=== PATIENT | female | born 1965 | race Caucasian/White ===

== ENCOUNTER 2017-03-29 14:26 | Inpatient (IN) | payer OTHER, MEDICAID ==
[~2017-03-29] VITALS: Ht 165.1 cm; Wt 95.9 kg
[~2017-03-29 14:26] MED LIST: CLON1TAB PO; ESTRADIOL PO; FLUO20CA19 PO; QUET25TA5 PO; QUET50TA5 PO; REMERON PO; RISPERIDONE; SEROQUEL PO; TRAM100T2 PO; XANAX; ZOLPIDEM PO
[2017-03-29] MEDS ORDERED: CLON-365 PO (14:47)
[2017-03-29] MEDS ORDERED: ESTR1.25 PO (14:47)
[2017-03-29] MEDS ORDERED: QUET300T5 PO (14:47)
[2017-03-29] MEDS ORDERED: KETOROLAC 30 MG/1 ML IV ONE (15:00)
[2017-03-29 15:52] LABS: BLOOD UREA NITROGEN 11 mg/dL (7-18)
[2017-03-29] MEDS ORDERED: HYDROmorphone 1 MG/ML, 1ML ONE ×2 (16:20→19:01)
[2017-03-29] MEDS ORDERED: HYDROmorphone 1 MG/ML, 1ML IV ONE (16:30)
[2017-03-29] MEDS ORDERED: MIDAZOLAM 1 MG/ML, 2ML ONE (17:45)
[2017-03-29] MEDS ORDERED: FENTANYL PF 250 MCG/5ML ONE (17:45)
[2017-03-29] MEDS ORDERED: KETAMINE 10 MG/ML, 20ML ONE (18:17)
[2017-03-29] MEDS ORDERED: NEOSPORIN OINT, 15GM ONE (18:18)
[2017-03-29] MEDS ORDERED: CEFAZOLIN 1,000 MG ONE (18:21)
[2017-03-29] MEDS ORDERED: SUCCINYLCHOLINE 20 MG/ML, 10ML ONE (18:21)
[2017-03-29] MEDS ORDERED: PHENYLEPHRINE 10 MG/ML ONE (18:21)
[2017-03-29] MEDS ORDERED: GLYCOPYRROLATE 0.2MG/1ML ONE (18:21)
[2017-03-29] MEDS ORDERED: NEOSTIGMINE 1 MG/ML, 10ML ONE (18:21)
[2017-03-29] MEDS ORDERED: ONDANSETRON 2MG/ML, 2ML ONE (18:21)
[2017-03-29] MEDS ORDERED: EPHEDRINE 50 MG/ML, 1ML ONE (18:21)
[2017-03-29] MEDS ORDERED: ROCURONIUM 10 MG/ML ONE (18:21)
[2017-03-29] MEDS ORDERED: PROPOFOL 10 MG/ML, 20ML ONE (18:21)
[2017-03-29] MEDS ORDERED: PROMETHAZINE 25 MG/ML, 1ML IV PRN (19:30)
[2017-03-29] MEDS ORDERED: LABETALOL 5MG/ML, 20ML IV PRN (19:30)
[2017-03-29] MEDS ORDERED: HYDROmorphone 1 MG/ML, 1ML IV PRN (19:30)
[2017-03-29] MEDS ORDERED: POTASSIUM CHLORIDE PMX 100 ML IV ONE (19:30)
[2017-03-29] MEDS ORDERED: METOPROLOL 1 MG/ML, 5ML IV PRN (19:30)
[2017-03-29] MEDS ORDERED: MEPERIDINE/PF 25MG/0.5ML IVPush PRN (19:30)
[2017-03-29] MEDS ORDERED: METOCLOPRAMIDE 5 MG/ML, 2ML IV PRN (19:30)
[2017-03-29] MEDS ORDERED: EPHEDRINE 50 MG/ML, 1ML IVPush PRN (19:30)
[2017-03-29] MEDS ORDERED: OXYcodone 5 MG/5 ML ORAL.SOL UDC PO PRN (19:30)
[2017-03-29] MEDS ORDERED: MIDAZOLAM 1 MG/ML, 2ML IV PRN (19:30)
[2017-03-29] MEDS ORDERED: ACETAMINOPHEN 325 MG TABLET PO PRN ×2 (19:30→20:30)
[2017-03-29] MEDS ORDERED: hydrALAzine 20 MG/ML, 1ML IV PRN (19:30)
[2017-03-29] MEDS ORDERED: FENTANYL PF 100 MCG/2ML IV PRN (19:30)
[2017-03-29] MEDS ORDERED: ONDANSETRON 2MG/ML, 2ML IVPush PRN ×2 (19:30→20:30)
[2017-03-29] MEDS ORDERED: OXYcodone 5 MG/5 ML ORAL.SOL UDC ONE (20:07)
[2017-03-29] MEDS ORDERED: FENTANYL PF 100 MCG/2ML ONE (20:07)
[2017-03-29] MEDS ORDERED: HYDROmorphone 2 MG/ML, 1ML ONE (20:07)
[2017-03-29] MEDS ORDERED: MAGNESIUM HYDROXIDE 8%, 30ML UDC PO PRN (20:30)
[2017-03-29] MEDS ORDERED: BISACODYL 10 MG SUPP PR PRN (20:30)
[2017-03-29] MEDS: POTASSIUM CHLORIDE 20 MEQ in D5%-0.45% NACL 1,000 ML IV SCH (22:57)
[2017-03-29] MEDS: DOCUSATE 100 MG CAPSULE PO SCH (22:57)
[2017-03-29 23:49] VITALS: BP 111/67
[2017-03-30] MEDS: OXYcodone/APAP 5/325MG TABLET PO PRN ×5 (02:51→18:07)
[2017-03-30] MEDS: CEFAZOLIN PMX 1GM/50ML 50 ML IVPB SCH ×2 (02:51→11:17)
[2017-03-30 03:28] VITALS: BP 102/68
[2017-03-30 07:12] VITALS: BP 110/70
[2017-03-30] MEDS: ENOXAPARIN 40 MG/0.4 ML SQ SCH (07:37)
[2017-03-30] MEDS: POTASSIUM CHLORIDE 20 MEQ in D5%-0.45% NACL 1,000 ML IV SCH ×2 (07:37→16:09)
[2017-03-30] MEDS: DOCUSATE 100 MG CAPSULE PO SCH ×2 (09:22→20:34)
[2017-03-30] MEDS: MULTIVITAMINS/MINERALS TABLET PO SCH (09:22)
[2017-03-30] MEDS: HYDROmorphone 1 MG/ML, 1ML IVPush PRN ×3 (11:35→20:34)
[2017-03-30 14:08] VITALS: BP 96/50
[2017-03-30 19:22] VITALS: BP 97/58
[2017-03-31] MEDS: OXYcodone/APAP 5/325MG TABLET PO PRN ×5 (00:14→22:46)
[2017-03-31 02:51] VITALS: BP 95/52
[2017-03-31] MEDS: HYDROmorphone 1 MG/ML, 1ML IVPush PRN ×3 (03:14→11:42)
[2017-03-31] MEDS: POTASSIUM CHLORIDE 20 MEQ in D5%-0.45% NACL 1,000 ML IV SCH ×2 (06:13→17:38)
[2017-03-31] MEDS: ENOXAPARIN 40 MG/0.4 ML SQ SCH (06:13)
[2017-03-31 07:57] VITALS: BP 113/77
[2017-03-31] MEDS: MULTIVITAMINS/MINERALS TABLET PO SCH (08:16)
[2017-03-31] MEDS: DOCUSATE 100 MG CAPSULE PO SCH ×2 (08:16→19:56)
[2017-03-31 14:45] VITALS: BP 98/65
[2017-03-31] MEDS ORDERED: ASPI-650 PO (16:24)
[2017-03-31] MEDS ORDERED: DOCU-30 PO (16:24)
[2017-03-31] MEDS ORDERED: OXYC-302 PO (16:27)
[2017-03-31 20:59] VITALS: BP 97/61
[2017-04-01] MEDS: HYDROmorphone 1 MG/ML, 1ML IVPush PRN ×4 (00:21→15:33)
[2017-04-01] MEDS: POTASSIUM CHLORIDE 20 MEQ in D5%-0.45% NACL 1,000 ML IV SCH ×3 (01:43→18:23)
[2017-04-01] MEDS: OXYcodone/APAP 5/325MG TABLET PO PRN ×5 (03:28→22:51)
[2017-04-01 03:30] VITALS: BP 135/81
[2017-04-01] MEDS: ENOXAPARIN 40 MG/0.4 ML SQ SCH (06:27)
[2017-04-01 08:31] VITALS: BP 124/81
[2017-04-01] MEDS: MULTIVITAMINS/MINERALS TABLET PO SCH (09:10)
[2017-04-01] MEDS: DOCUSATE 100 MG CAPSULE PO SCH ×2 (09:10→21:21)
[2017-04-01 14:07] VITALS: BP 130/81
[2017-04-01] MEDS: SENNA/DOCUSATE TABLET PO PRN (15:33)
[2017-04-01 19:55] VITALS: BP 127/81
[2017-04-02] MEDS: POTASSIUM CHLORIDE 20 MEQ in D5%-0.45% NACL 1,000 ML IV SCH ×2 (01:58→13:06)
[2017-04-02 02:45] VITALS: BP 124/85
[2017-04-02] MEDS: OXYcodone/APAP 5/325MG TABLET PO PRN ×5 (03:05→21:40)
[2017-04-02] MEDS: ENOXAPARIN 40 MG/0.4 ML SQ SCH (05:33)
[2017-04-02] MEDS: HYDROmorphone 1 MG/ML, 1ML IVPush PRN ×3 (05:59→20:24)
[2017-04-02 07:08] VITALS: BP 124/84
[2017-04-02] MEDS ORDERED: ONDANSETRON 4 MG TABLET PO PRN (08:00)
[2017-04-02] MEDS: MULTIVITAMINS/MINERALS TABLET PO SCH (08:57)
[2017-04-02] MEDS: ORAJEL 7GM TUBE MM PRN (08:58)
[2017-04-02] MEDS: DOCUSATE 100 MG CAPSULE PO SCH ×2 (08:58→21:40)
[2017-04-02 12:16] VITALS: BP 124/80
[2017-04-02 20:30] VITALS: BP 117/78
[2017-04-03] MEDS: OXYcodone/APAP 5/325MG TABLET PO PRN ×3 (01:24→10:14)
[2017-04-03] MEDS: POTASSIUM CHLORIDE 20 MEQ in D5%-0.45% NACL 1,000 ML IV SCH ×3 (01:24→19:18)
[2017-04-03 02:00] VITALS: BP 126/70
[2017-04-03] MEDS: HYDROmorphone 1 MG/ML, 1ML IVPush PRN (04:35)
[2017-04-03 04:58] VITALS: BP 126/73
[2017-04-03] MEDS: SENNA/DOCUSATE TABLET PO PRN (05:27)
[2017-04-03] MEDS: ENOXAPARIN 40 MG/0.4 ML SQ SCH (05:28)
[2017-04-03] MEDS ORDERED: POLYETHYLENE GLYCOL 17 GM PACKET NG ONE (09:00)
[2017-04-03 09:18] VITALS: BP 120/80
[2017-04-03] MEDS: MULTIVITAMINS/MINERALS TABLET PO SCH (10:13)
[2017-04-03] MEDS: DOCUSATE 100 MG CAPSULE PO SCH ×2 (10:13→20:45)
[2017-04-03 14:16] VITALS: BP 134/80
[2017-04-03] MEDS: OXYcodone/APAP 10/325MG TABLET PO PRN ×2 (15:00→20:45)
[2017-04-03] MEDS: ORAJEL 7GM TUBE MM PRN (16:36)
[2017-04-03 19:35] VITALS: BP 131/84
[2017-04-04] MEDS: OXYcodone/APAP 10/325MG TABLET PO PRN ×4 (00:45→14:13)
[2017-04-04 03:00] VITALS: BP 130/86
[2017-04-04] MEDS: POTASSIUM CHLORIDE 20 MEQ in D5%-0.45% NACL 1,000 ML IV SCH ×2 (04:22→14:13)
[2017-04-04] MEDS: ENOXAPARIN 40 MG/0.4 ML SQ SCH (05:24)
[2017-04-04 08:01] VITALS: BP 136/85
[2017-04-04] MEDS: MULTIVITAMINS/MINERALS TABLET PO SCH (09:37)
[2017-04-04] MEDS: DOCUSATE 100 MG CAPSULE PO SCH (09:37)
[2017-04-04 14:02] VITALS: BP 123/68
== END 2017-04-04 17:15 | DRG 481 ==
LOC: ED 15:48 → EDIP 15:49 → ED 15:58 → 4NOR 17:07
PROVIDERS: ADMIT Orthopaedic Surgery; ATTEND Orthopaedic Surgery
PROC: 0QS604Z Reposition Right Upper Femur with Internal Fixation Device, Open Approach (ICD-10-PCS; principal; 2017-03-29 18:30)
DX: S72.001A Fracture of unspecified part of neck of right femur, initial encounter for closed fracture (principal); D62 Acute posthemorrhagic anemia; M25.051 Hemarthrosis, right hip; F17.210 Nicotine dependence, cigarettes, uncomplicated; F41.9 Anxiety disorder, unspecified; W19.XXXA Unspecified fall, initial encounter; Y93.89 Activity, other specified; Y92.89 Other specified places as the place of occurrence of the external cause; Z98.1 Arthrodesis status
CPT/HCPCS: 36415; 76001; 80048; 80307; 82040; 82550; 85014; 85025; C1713; J0690; J1170; J1650; J2250; J2405; J2704; J2710; J3010; J3480; J3490; Q0162; C1769; J0330; J2370

== ENCOUNTER 2017-05-01 15:43 | Emergency (ER) | payer OTHER, MEDICAID ==
[~2017-05-01 15:43] MED LIST changes: +ASPI-650 PO; +CLON-365 PO; +DOCU-30 PO; +ESTR1.25 PO; +OXYC-302 PO; +QUET300T5 PO
[2017-05-01 17:48] VITALS: BP 136/76
== END 2017-05-01 17:56 | disposition home or self-care (01) ==
LOC: ED 17:14
DX: S70.01XA Contusion of right hip, initial encounter (principal); I10 Essential (primary) hypertension; E78.5 Hyperlipidemia, unspecified; F17.200 Nicotine dependence, unspecified, uncomplicated; Z90.710 Acquired absence of both cervix and uterus; W07.XXXA Fall from chair, initial encounter; Y93.89 Activity, other specified; Y92.89 Other specified places as the place of occurrence of the external cause; Y99.8 Other external cause status
CPT/HCPCS: 99284

== ENCOUNTER 2017-06-07 12:16 | Emergency (ER) | payer OTHER, MEDICAID ==
[~2017-06-07] VITALS: Ht 165.1 cm; Wt 100.0 kg
[2017-06-07] MEDS ORDERED: SODIUM CHLORIDE FLUSH 10ML SYR IVF ONE (12:30)
[2017-06-07] MEDS ORDERED: MORPHINE SULFATE 4 MG/ML, 1ML ONE ×2 (12:32→13:25)
[2017-06-07] MEDS: MORPHINE SULFATE 4 MG/ML, 1ML IVPush PRN ×2 (12:34→13:27)
[2017-06-07 14:56] VITALS: BP 119/69
== END 2017-06-07 14:58 | disposition home or self-care (01) ==
LOC: ED 14:45
DX: S70.01XA Contusion of right hip, initial encounter (principal); I10 Essential (primary) hypertension; Z90.710 Acquired absence of both cervix and uterus; Z98.890 Other specified postprocedural states; W01.0XXA Fall on same level from slipping, tripping and stumbling without subsequent striking against object, initial encounter; Y93.89 Activity, other specified; Y92.098 Other place in other non-institutional residence as the place of occurrence of the external cause; Y99.8 Other external cause status
CPT/HCPCS: 96374; 96376

== ENCOUNTER 2017-06-29 09:46 | Day surgery (SDC) | payer OTHER, MEDICAID ==
[~2017-06-29] VITALS: Ht 165.1 cm; Wt 87.1 kg
[2017-06-29] MEDS ORDERED: LACTATED RINGERS 1,000 ML IV SCH (10:41)
[2017-06-29 10:48] VITALS: BP 161/95
[2017-06-29] MEDS ORDERED: ESTR1TAB17 PO (10:58)
[2017-06-29] MEDS ORDERED: BUPIVACAINE/PF 0.5% ONE (11:51)
[2017-06-29] MEDS ORDERED: methylPREDNISolone *ACETATE* 40 MG/ML ONE (11:51)
[2017-06-29] MEDS ORDERED: LIDOCAINE/PF 1%, 30ML ONE (12:14)
[2017-06-29] MEDS ORDERED: ALBUTEROL SULFATE 2.5 MG/3 ML NPPB PRN (13:00)
[2017-06-29] MEDS ORDERED: HYDROcodone/APAP 7.5-325MG/15ML UDC PO PRN (13:00)
[2017-06-29] MEDS ORDERED: ONDANSETRON 2MG/ML, 2ML IVPush PRN (13:00)
[2017-06-29] MEDS ORDERED: HYDROcodone/APAP 5/325 TABLET PO ONE (14:30)
[2017-06-29] MEDS ORDERED: KETOROLAC 30 MG/1 ML ONE (15:58)
== END 2017-06-29 15:15 ==
LOC: OUT 09:46
PROVIDERS: ATTEND Orthopaedic Surgery
DX: S72.001K Fracture of unspecified part of neck of right femur, subsequent encounter for closed fracture with nonunion (principal); X58.XXXD Exposure to other specified factors, subsequent encounter; F17.200 Nicotine dependence, unspecified, uncomplicated
CPT/HCPCS: 20610; 73501; 73700; 76000; J1030; J1885; J3490; J7120

== ENCOUNTER → 2017-07-01 | Outpatient (CLI) | payer OTHER, MEDICAID ==
[~2017-07-01] MED LIST changes: +ESTR1TAB17 PO
[2017-07-01 13:01] LABS: HEMATOCRIT 38.2 % (34.6-47.8); HEMOGLOBIN 12.2 g/dL (11.7-16.4); WHITE BLOOD COUNT 8.2 x10^3/uL (3.4-10)
[2017-07-01 13:14] LABS: BLOOD UREA NITROGEN 15 mg/dL (7-18)
[2017-07-01 13:23] LABS: ASPARTATE AMINO TRANSFERASE 10 U/L (15-37)
== END | disposition home or self-care (01) ==
LOC: STAR 11:51
PROVIDERS: ATTEND Orthopaedic Surgery
DX: S72.031D Displaced midcervical fracture of right femur, subsequent encounter for closed fracture with routine healing (principal); X58.XXXD Exposure to other specified factors, subsequent encounter
CPT/HCPCS: 36415; 80053; 81003; 85025; 85651; 86140; 87081; 87147; 93005

== ENCOUNTER 2017-07-07 08:05 | Inpatient (IN) | payer OTHER, MEDICAID ==
[~2017-07-07] VITALS: Ht 165.1 cm; Wt 91.7 kg
[~2017-07-07 08:05] MED LIST changes: +DOCU-131 PO; -DOCU-30 PO
[2017-07-07] MEDS ORDERED: VANCOMYCIN PER PHARMACY MC ONE (08:24)
[2017-07-07] MEDS ORDERED: VANCOMYCIN 1,700 MG in SODIUM CHLORIDE 0.9% 250 ML IV ONE (08:30)
[2017-07-07] MEDS ORDERED: LACTATED RINGERS 1,000 ML IV SCH (09:03)
[2017-07-07 09:04] VITALS: BP 166/110
[2017-07-07] MEDS ORDERED: MIDAZOLAM 1 MG/ML, 2ML ONE (10:20)
[2017-07-07] MEDS ORDERED: FENTANYL PF 100 MCG/2ML ONE (10:20)
[2017-07-07] MEDS ORDERED: ROCURONIUM 10 MG/ML ONE (10:36)
[2017-07-07] MEDS ORDERED: DEXAMETHASONE 4 MG/ML, 1ML ONE (10:36)
[2017-07-07] MEDS ORDERED: ONDANSETRON 2MG/ML, 2ML ONE ×2 (10:36→13:06)
[2017-07-07] MEDS ORDERED: CEFAZOLIN 1,000 MG ONE (10:36)
[2017-07-07] MEDS ORDERED: PROPOFOL 10 MG/ML, 20ML ONE (10:36)
[2017-07-07] MEDS ORDERED: TRANEXAMIC ACID 100 MG/ML, 10ML ONE (11:10)
[2017-07-07] MEDS ORDERED: KETOROLAC 60 MG/2 ML ONE (11:13)
[2017-07-07] MEDS ORDERED: ROPIvacaine/PF 0.2%, 20 ML ONE (11:13)
[2017-07-07] MEDS ORDERED: SODIUM CHLORIDE 0.9% 50 ML ONE (11:14)
[2017-07-07] MEDS ORDERED: EPINEPHRINE 1 MG/ML, 1ML ONE (11:14)
[2017-07-07] MEDS ORDERED: EPHEDRINE 50 MG/ML, 1ML IVPush PRN (12:30)
[2017-07-07] MEDS ORDERED: HYDROcodone/APAP 7.5-325MG/15ML UDC PO PRN (12:30)
[2017-07-07] MEDS ORDERED: LABETALOL 5MG/ML, 20ML IV PRN (12:30)
[2017-07-07] MEDS ORDERED: ALBUTEROL SULFATE 2.5 MG/3 ML NPPB PRN (12:30)
[2017-07-07] MEDS ORDERED: OXYcodone 5 MG/5 ML ORAL.SOL UDC PO PRN (12:30)
[2017-07-07] MEDS ORDERED: MEPERIDINE/PF 25MG/0.5ML IVPush PRN (12:30)
[2017-07-07] MEDS ORDERED: ACETAMINOPHEN 325 MG TABLET PO PRN (12:30)
[2017-07-07] MEDS ORDERED: MIDAZOLAM 1 MG/ML, 2ML IV PRN (12:30)
[2017-07-07] MEDS ORDERED: FENTANYL PF 100 MCG/2ML IV PRN (12:30)
[2017-07-07] MEDS ORDERED: ALBUTEROL/IPRATROPIUM 2.5MG/0.5MG, 3 ML NPPB PRN (12:30)
[2017-07-07] MEDS ORDERED: METOPROLOL 1 MG/ML, 5ML IV PRN (12:30)
[2017-07-07] MEDS ORDERED: ONDANSETRON 2MG/ML, 2ML IVPush PRN (12:30)
[2017-07-07] MEDS ORDERED: PROMETHAZINE 25 MG/ML, 1ML IV PRN (12:30)
[2017-07-07] MEDS ORDERED: HYDROmorphone 1 MG/ML, 1ML IV PRN (12:30)
[2017-07-07] MEDS ORDERED: hydrALAzine 20 MG/ML, 1ML IV PRN (12:30)
[2017-07-07] MEDS: D5%-0.45NACL+KCL 20MEQ 1,000 ML IV SCH ×2 (13:03→19:25)
[2017-07-07] MEDS: ONDANSETRON 2MG/ML, 2ML IV PRN (13:09)
[2017-07-07] MEDS ORDERED: BISACODYL 10 MG SUPP PR PRN (13:30)
[2017-07-07] MEDS ORDERED: ALUMINUM/MAG/SIMETHICONE 30 ML UDC PO PRN (13:30)
[2017-07-07] MEDS ORDERED: MAGNESIUM HYDROXIDE 8%, 30ML UDC PO PRN (13:30)
[2017-07-07] MEDS ORDERED: ACETAMINOPHEN 650 MG/20.3 ML UDC PO PRN (13:30)
[2017-07-07] MEDS ORDERED: SENNA/DOCUSATE TABLET PO PRN (13:30)
[2017-07-07] MEDS ORDERED: PROMETHAZINE 25 MG/ML, 1ML ONE (13:40)
[2017-07-07] MEDS ORDERED: HYDROmorphone 1 MG/ML, 1ML ONE (13:40)
[2017-07-07] MEDS: OXYcodone IR 5MG TABLET PO PRN ×3 (15:30→22:12)
[2017-07-07] MEDS: HYDROmorphone 1 MG/ML, 1ML IV PRN ×3 (17:03→23:42)
[2017-07-07] MEDS: CEFAZOLIN PMX 1GM/50ML 50 ML IVPB SCH (18:41)
[2017-07-07] MEDS: DOCUSATE 100 MG CAPSULE PO SCH (19:55)
[2017-07-07 20:00] VITALS: BP 131/79
[2017-07-08] VITALS: BP 107/71
[2017-07-08] MEDS: OXYcodone IR 5MG TABLET PO PRN ×5 (02:02→20:21)
[2017-07-08] MEDS: CEFAZOLIN PMX 1GM/50ML 50 ML IVPB SCH (03:04)
[2017-07-08] MEDS: HYDROmorphone 1 MG/ML, 1ML IV PRN ×2 (03:24→05:36)
[2017-07-08 04:00] VITALS: BP 130/81
[2017-07-08] MEDS: ASPIRIN 325 MG TABLET EC PO SCH ×2 (05:36→17:26)
[2017-07-08 07:41] VITALS: BP 140/77
[2017-07-08] MEDS: MULTIVITAMINS/MINERALS TABLET PO SCH (07:52)
[2017-07-08] MEDS: DOCUSATE 100 MG CAPSULE PO SCH ×2 (07:52→20:20)
[2017-07-08] MEDS: OxyconTIN ER 10 MG TAB.ER PO SCH ×2 (08:58→20:15)
[2017-07-08] MEDS: D5%-0.45NACL+KCL 20MEQ 1,000 ML IV SCH ×2 (09:03→18:19)
[2017-07-08 14:10] VITALS: BP 137/84
[2017-07-08] MEDS: KETOROLAC 30 MG/1 ML IV SCH ×2 (14:12→21:44)
[2017-07-08] MEDS ORDERED: OXYC10TA47 PO (16:34)
[2017-07-08] MEDS ORDERED: OXYC10TA6 PO (16:35)
[2017-07-08] MEDS ORDERED: DOCU100C33 PO (16:37)
[2017-07-08] MEDS ORDERED: ASPI-650 PO (16:38)
[2017-07-08 18:54] VITALS: BP 113/68
[2017-07-08] MEDS: ONDANSETRON 2MG/ML, 2ML IV PRN (21:44)
[2017-07-09] MEDS: OXYcodone IR 5MG TABLET PO PRN ×3 (00:19→11:20)
[2017-07-09 01:32] VITALS: BP 117/70
[2017-07-09] MEDS: ASPIRIN 325 MG TABLET EC PO SCH (05:31)
[2017-07-09] MEDS: KETOROLAC 30 MG/1 ML IV SCH (05:31)
[2017-07-09] MEDS: D5%-0.45NACL+KCL 20MEQ 1,000 ML IV SCH (05:32)
[2017-07-09 06:30] VITALS: BP 116/51
[2017-07-09] MEDS: DOCUSATE 100 MG CAPSULE PO SCH (08:05)
[2017-07-09] MEDS: MULTIVITAMINS/MINERALS TABLET PO SCH (08:05)
[2017-07-09] MEDS: OxyconTIN ER 10 MG TAB.ER PO SCH (08:05)
[2017-07-09] MEDS: ONDANSETRON 2MG/ML, 2ML IV PRN (09:59)
[2017-07-09 11:51] VITALS: BP 125/57
== END 2017-07-09 12:15 | disposition home or self-care (01) | DRG 470 ==
LOC: ORIP 08:05 → MERGE 10:30 → 4NOR 14:37
PROVIDERS: ADMIT Orthopaedic Surgery; ATTEND Orthopaedic Surgery
PROC: 0SP904Z Removal of Internal Fixation Device from Right Hip Joint, Open Approach (ICD-10-PCS; 2017-07-07)
PROC: 0SR90J9 Replacement of Right Hip Joint with Synthetic Substitute, Cemented, Open Approach (ICD-10-PCS; principal; 2017-07-07 10:30)
DX: S72.001A Fracture of unspecified part of neck of right femur, initial encounter for closed fracture (principal); E66.9 Obesity, unspecified; Z72.0 Tobacco use; Z68.33 Body mass index [BMI] 33.0-33.9, adult
CPT/HCPCS: 36415; 72170; 86850; 86900; C1713; J0171; J0690; J1100; J1170; J1885; J2250; J2405; J2550; J2704; J2795; J3010; J3370; C1776; J3480; J7050; J7120

== ENCOUNTER 2017-08-21 13:41 | Emergency (ER) | payer OTHER, MEDICAID ==
[~2017-08-21] VITALS: Ht 165.1 cm; Wt 88.1 kg
[~2017-08-21 13:41] MED LIST changes: +DOCU100C33 PO; +OXYC10TA47 PO; +OXYC10TA6 PO
[2017-08-21 13:48] VITALS: BP 161/112
[2017-08-21] MEDS ORDERED: OXYC5CAP2 PO (14:18)
[2017-08-21] MEDS ORDERED: HYDROcodone/APAP 5/325 TABLET PO ONE (15:00)
[2017-08-21] MEDS ORDERED: HYDROcodone/APAP 5/325 TABLET ONE (15:06)
== END 2017-08-21 15:54 ==
LOC: ED 15:30
DX: S70.01XA Contusion of right hip, initial encounter (principal); S30.0XXA Contusion of lower back and pelvis, initial encounter; I10 Essential (primary) hypertension; E78.5 Hyperlipidemia, unspecified; Z90.710 Acquired absence of both cervix and uterus; W19.XXXA Unspecified fall, initial encounter; Y93.89 Activity, other specified; Y92.009 Unspecified place in unspecified non-institutional (private) residence as the place of occurrence of the external cause; Y99.9 Unspecified external cause status
CPT/HCPCS: 72131; 72192; 99284

== ENCOUNTER 2017-09-20 13:45 | Inpatient (IN) | payer OTHER, MEDICAID ==
[~2017-09-20] VITALS: Ht 165.1 cm; Wt 82.5 kg
[~2017-09-20 13:45] MED LIST changes: +OXYC5CAP2 PO
[2017-09-20] MEDS ORDERED: SODIUM CHLORIDE 0.9% 1,000 ML IV ONE (14:09)
[2017-09-20] MEDS ORDERED: SODIUM CHLORIDE 0.9% 1,000ML IVBOLUS ONE (14:30)
[2017-09-20 14:33] LABS: HEMATOCRIT 28.2 % (34.6-47.8); HEMOGLOBIN 9.3 g/dL (11.7-16.4); WHITE BLOOD COUNT 11.5 x10^3/uL (3.4-10)
[2017-09-20 14:46] LABS: BLOOD UREA NITROGEN 24 mg/dL (7-18)
[2017-09-20 14:57] LABS: ASPARTATE AMINO TRANSFERASE 10 U/L (15-37)
[2017-09-20] MEDS ORDERED: ONDANSETRON 2MG/ML, 2ML ONE (15:54)
[2017-09-20] MEDS ORDERED: HYDROmorphone 1 MG/ML, 1ML ONE ×2 (15:54→18:17)
[2017-09-20] MEDS: HYDROmorphone 1 MG/ML, 1ML IVPush PRN ×2 (15:56→18:22)
[2017-09-20] MEDS ORDERED: ONDANSETRON 2MG/ML, 2ML IVPush ONE (16:00)
[2017-09-20] MEDS ORDERED: CLON0.1T PO (16:09)
[2017-09-20] MEDS ORDERED: PANTOPRAZOLE 40 MG IV ONE (17:24)
[2017-09-20] MEDS ORDERED: PANTOPRAZOLE 40 MG IV IVPush ONE (17:30)
[2017-09-20] MEDS ORDERED: PANTOPRAZOLE 80 MG in SODIUM CHLORIDE 0.9% 100 ML IV SCH (18:00)
[2017-09-20] MEDS ORDERED: SODIUM CHLORIDE FLUSH 10ML SYR IVF PRN (18:00)
[2017-09-20] MEDS ORDERED: ONDANSETRON 2MG/ML, 2ML IVPush PRN (18:30)
[2017-09-20] MEDS: PANTOPRAZOLE 80 MG in SODIUM CHLORIDE 0.9% 100 ML IV SCH (18:30)
[2017-09-20 18:50] VITALS: BP 120/77
[2017-09-20] MEDS: OXYCODONE MC SCH (20:00)
[2017-09-20 20:03] LABS: HEMOGLOBIN 7.7 g/dL (11.7-16.4)
[2017-09-20] MEDS: NS + 20MEQ KCL 1,000 ML IV SCH (20:55)
[2017-09-20] MEDS: LORazepam 2 MG/ML, 1ML IVPush PRN (21:05)
[2017-09-20] MEDS: QUETIAPINE 100MG TABLET PO SCH (21:34)
[2017-09-21] VITALS (11 sets, daily range): BP systolic 96–133; BP diastolic 43–77
[2017-09-21 02:22] LABS: HEMOGLOBIN 7.2 g/dL (11.7-16.4); WHITE BLOOD COUNT 8.3 x10^3/uL (3.4-10)
[2017-09-21 02:25] LABS: HEMATOCRIT 22.3 % (34.6-47.8)
[2017-09-21 02:34] LABS: BLOOD UREA NITROGEN 21 mg/dL (7-18)
[2017-09-21 02:37] LABS: ASPARTATE AMINO TRANSFERASE 9 U/L (15-37)
[2017-09-21] MEDS: LORazepam 2 MG/ML, 1ML IVPush PRN ×3 (03:30→20:25)
[2017-09-21] MEDS: OXYCODONE MC SCH (04:00)
[2017-09-21] MEDS ORDERED: HYDROcodone/APAP 7.5-325MG/15ML UDC PO PRN (07:30)
[2017-09-21] MEDS ORDERED: OXYcodone 5 MG/5 ML ORAL.SOL UDC PO PRN (07:30)
[2017-09-21] MEDS ORDERED: EPHEDRINE 50 MG/ML, 1ML IVPush PRN (07:30)
[2017-09-21] MEDS ORDERED: METOCLOPRAMIDE 5 MG/ML, 2ML IV PRN (07:30)
[2017-09-21] MEDS ORDERED: PROMETHAZINE 25 MG/ML, 1ML IV PRN (07:30)
[2017-09-21] MEDS ORDERED: LABETALOL 5MG/ML, 20ML IV PRN (07:30)
[2017-09-21] MEDS ORDERED: ACETAMINOPHEN 325 MG TABLET PO PRN (07:30)
[2017-09-21] MEDS ORDERED: METOPROLOL 1 MG/ML, 5ML IV PRN (07:30)
[2017-09-21] MEDS ORDERED: hydrALAzine 20 MG/ML, 1ML IV PRN (07:30)
[2017-09-21] MEDS ORDERED: ALBUTEROL SULFATE 2.5 MG/3 ML NPPB PRN (07:30)
[2017-09-21] MEDS ORDERED: MEPERIDINE/PF 25MG/0.5ML IVPush PRN (07:30)
[2017-09-21] MEDS ORDERED: ONDANSETRON 2MG/ML, 2ML IVPush PRN (07:30)
[2017-09-21] MEDS ORDERED: HYDROmorphone 1 MG/ML, 1ML IV PRN (07:30)
[2017-09-21] MEDS ORDERED: FENTANYL PF 100 MCG/2ML ONE ×2 (07:31→08:49)
[2017-09-21] MEDS ORDERED: MIDAZOLAM 1 MG/ML, 2ML ONE (08:48)
[2017-09-21] MEDS: MIDAZOLAM 1 MG/ML, 2ML IV PRN ×2 (08:56→09:11)
[2017-09-21] MEDS ORDERED: EPINEPHRINE SYRINGE 0.1 MG/ML, 10ML ONE (08:57)
[2017-09-21] MEDS: FENTANYL PF 100 MCG/2ML IV PRN ×2 (08:59→09:09)
[2017-09-21] MEDS: NS + 20MEQ KCL 1,000 ML IV SCH ×2 (09:00→20:26)
[2017-09-21] MEDS ORDERED: OXYcodone IR 5MG TABLET PO SCH (09:00)
[2017-09-21] MEDS ORDERED: HYDROmorphone 1 MG/ML, 1ML ONE (09:13)
[2017-09-21] MEDS: OXYcodone IR 5MG TABLET PO PRN ×2 (10:42→17:29)
[2017-09-21] MEDS: PANTOPRAZOLE 80 MG in SODIUM CHLORIDE 0.9% 100 ML IV SCH (10:43)
[2017-09-21] MEDS: ESTRADIOL 1 MG TABLET PO SCH (10:43)
[2017-09-21] MEDS: PANTOPRAZOLE 40 MG IV IVPush SCH ×2 (11:00→23:50)
[2017-09-21 11:33] LABS: HEMOGLOBIN 7.8 g/dL (11.7-16.4)
[2017-09-21 14:29] LABS: HEMATOCRIT 23.3 % (34.6-47.8); HEMOGLOBIN 7.6 g/dL (11.7-16.4)
[2017-09-21] MEDS ORDERED: ONDANSETRON 2MG/ML, 2ML ONE (15:56)
[2017-09-21] MEDS ORDERED: ROCURONIUM 10 MG/ML ONE (15:56)
[2017-09-21] MEDS ORDERED: PROPOFOL 10 MG/ML, 20ML ONE (15:56)
[2017-09-21] MEDS ORDERED: SUCCINYLCHOLINE 20 MG/ML, 10ML ONE (15:56)
[2017-09-21] MEDS: QUETIAPINE 100MG TABLET PO SCH (20:25)
[2017-09-22] MEDS: LORazepam 2 MG/ML, 1ML IVPush PRN ×2 (02:50→10:41)
[2017-09-22] MEDS: OXYcodone IR 5MG TABLET PO PRN ×2 (02:50→10:06)
[2017-09-22 03:00] VITALS: BP 123/73
[2017-09-22 05:32] LABS: BLOOD UREA NITROGEN 12 mg/dL (7-18)
[2017-09-22] MEDS: NS + 20MEQ KCL 1,000 ML IV SCH (05:50)
[2017-09-22 07:39] VITALS: BP 100/64
[2017-09-22 09:13] LABS: HEMOGLOBIN 7.9 g/dL (11.7-16.4); WHITE BLOOD COUNT 8.9 x10^3/uL (3.4-10)
[2017-09-22] MEDS: PANTOPRAZOLE 40 MG IV IVPush SCH (10:06)
[2017-09-22] MEDS: ESTRADIOL 1 MG TABLET PO SCH (10:06)
[2017-09-22] MEDS ORDERED: ASCO500T6 PO (10:26)
[2017-09-22] MEDS ORDERED: PANT40TA5 PO (10:26)
[2017-09-22] MEDS ORDERED: FERR-36 PO (10:26)
[2017-09-22] MEDS ORDERED: PANTOPROZOLE 40MG TABLET PO SCH (10:30)
[2017-09-22] MEDS ORDERED: ASCORBIC ACID 500 MG TABLET PO SCH (10:30)
[2017-09-23] MEDS ORDERED: FERROUS SULFATE 325 MG TABLET PO SCH (08:00)
== END 2017-09-22 13:56 | disposition home or self-care (01) | DRG 378 ==
LOC: ED 15:54 → EDIP 17:37 → 3NE 19:00
PROVIDERS: ADMIT Family Medicine; ATTEND Family Medicine
PROC: 0W3P8ZZ Control Bleeding in Gastrointestinal Tract, Via Natural or Artificial Opening Endoscopic (ICD-10-PCS; 2017-09-21)
PROC: 0DB78ZX Excision of Stomach, Pylorus, Via Natural or Artificial Opening Endoscopic, Diagnostic (ICD-10-PCS; 2017-09-21)
PROC: 30233N1 Transfusion of Nonautologous Red Blood Cells into Peripheral Vein, Percutaneous Approach (ICD-10-PCS; principal; 2017-09-21 07:30)
DX: K26.4 Chronic or unspecified duodenal ulcer with hemorrhage (principal); D62 Acute posthemorrhagic anemia; I31.3 Pericardial effusion (noninflammatory); E44.1 Mild protein-calorie malnutrition; K29.81 Duodenitis with bleeding; Z68.33 Body mass index [BMI] 33.0-33.9, adult; D72.829 Elevated white blood cell count, unspecified; E78.5 Hyperlipidemia, unspecified; E87.6 Hypokalemia; Z96.649 Presence of unspecified artificial hip joint; F17.210 Nicotine dependence, cigarettes, uncomplicated; F31.9 Bipolar disorder, unspecified; F43.10 Post-traumatic stress disorder, unspecified; G89.29 Other chronic pain; I10 Essential (primary) hypertension; Z82.49 Family history of ischemic heart disease and other diseases of the circulatory system
CPT/HCPCS: 36415; 36430; 74177; 80048; 80053; 81003; 83605; 83690; 83735; 84100; 85014; 85018; 85025; 85610; 85730; 86850; 86900; 86923; 88305; 96361; 96365; 96375; 96376; J1170; J2250; J2405; J2704; J3010; J3480; C9113; J0330; J2060; J7030; P9016

== ENCOUNTER 2017-10-02 21:45 | Emergency (ER) | payer OTHER, MEDICAID ==
[~2017-10-02] VITALS: Ht 165.1 cm; Wt 82.0 kg
[~2017-10-02 21:45] MED LIST changes: +ASCO500T6 PO; +CLON0.1T PO; +FERR-36 PO; +PANT40TA5 PO
[2017-10-02] MEDS ORDERED: KETOROLAC 30 MG/1 ML ONE (22:18)
[2017-10-02] MEDS ORDERED: HYDROcodone/APAP 5/325 TABLET ONE (22:18)
[2017-10-02] MEDS ORDERED: KETOROLAC 30 MG/1 ML IM ONE (22:30)
[2017-10-02] MEDS ORDERED: HYDROcodone/APAP 5/325 TABLET PO ONE (22:30)
[2017-10-02 23:21] LABS: HEMATOCRIT 32.3 % (34.6-47.8); HEMOGLOBIN 10.7 g/dL (11.7-16.4); WHITE BLOOD COUNT 7.9 x10^3/uL (3.4-10)
[2017-10-02 23:43] LABS: BLOOD UREA NITROGEN 14 mg/dL (7-18)
[2017-10-02 23:48] LABS: IS PT STATUS REG ER OR PRE ER? YES
[2017-10-03] MEDS ORDERED: POTASSIUM CHLORIDE 20 MEQ TAB.ER.PRT ONE (00:16)
[2017-10-03] MEDS ORDERED: POTASSIUM CHLORIDE 20 MEQ TAB.ER.PRT PO ONE (00:30)
[2017-10-03 01:02] VITALS: BP 132/78
== END 2017-10-03 01:04 | disposition home or self-care (01) ==
LOC: ED 21:58
DX: S40.011A Contusion of right shoulder, initial encounter (principal); S70.11XA Contusion of right thigh, initial encounter; S80.01XA Contusion of right knee, initial encounter; I10 Essential (primary) hypertension; E78.5 Hyperlipidemia, unspecified; W01.0XXA Fall on same level from slipping, tripping and stumbling without subsequent striking against object, initial encounter; Y93.89 Activity, other specified; Y92.009 Unspecified place in unspecified non-institutional (private) residence as the place of occurrence of the external cause; Y99.9 Unspecified external cause status
CPT/HCPCS: 36415; 73030; 73552; 73564; 80048; 82040; 84484; 85025; 93005; 96372; 99285; J1885

== ENCOUNTER 2018-01-31 16:36 | Emergency (ER) | payer MEDICARE, MEDICAID ==
[~2018-01-31] VITALS: Ht 165.1 cm; Wt 74.4 kg
[~2018-01-31 16:36] MED LIST changes: -FERR-36 PO; +FERR-51 PO
[2018-01-31] MEDS ORDERED: HYDROcodone/APAP 5/325 TABLET PO ONE (18:30)
[2018-01-31] MEDS ORDERED: HYDROcodone/APAP 5/325 TABLET ONE (18:54)
[2018-01-31 19:34] VITALS: BP 129/74
== END 2018-01-31 19:36 | disposition home or self-care (01) ==
LOC: ED 19:30
DX: S76.012A Strain of muscle, fascia and tendon of left hip, initial encounter (principal); W01.0XXA Fall on same level from slipping, tripping and stumbling without subsequent striking against object, initial encounter; Y93.89 Activity, other specified; Y92.009 Unspecified place in unspecified non-institutional (private) residence as the place of occurrence of the external cause; Y99.8 Other external cause status; Z90.710 Acquired absence of both cervix and uterus; E78.5 Hyperlipidemia, unspecified; F31.9 Bipolar disorder, unspecified; F43.10 Post-traumatic stress disorder, unspecified; I10 Essential (primary) hypertension; Z90.49 Acquired absence of other specified parts of digestive tract
CPT/HCPCS: 93005; 99284

== ENCOUNTER 2018-03-08 20:14 | Inpatient (IN) | payer MEDICARE, MEDICAID ==
[~2018-03-08] VITALS: Ht 165.1 cm; Wt 80.1 kg
[~2018-03-08 20:14] MED LIST changes: -TRAM100T2 PO; +TRAM100T33 PO
[2018-03-08 20:47] LABS: BASOPHILS # (AUTO) 0.04 x10^3/uL (0-0.1); BASOPHILS % (AUTO) 0 % (0-1); EOSINOPHILS # (AUTO) 0.07 x10^3/uL (0-0.4); EOSINOPHILS % (AUTO) 1 % (1-7); LYMPHOCYTES # (AUTO) 4.73 x10^3/uL (1-3.4); LYMPHOCYTES % (AUTO) 44 % (22-44); MD NO; MEAN CORPUSCULAR HEMOGLOBIN 30.3 pg (27.0-34.8); MEAN CORPUSCULAR HGB CONC 33.4 g/dL (32.4-35.8); MEAN CORPUSCULAR VOLUME 90.5 fL (80-100); MEAN PLATELET VOLUME 7.7 fL (7.4-10.4); MONOCYTES # (AUTO) 0.55 x10^3/uL (0.2-0.8); MONOCYTES % (AUTO) 5 % (2-9); NEUTROPHILS # (AUTO) 5.47 x10^3/uL (1.8-6.8); NEUTROPHILS % (AUTO) 50 % (42-75); PLATELET COUNT 367 x10^3/uL (130-400); RED BLOOD COUNT 4.06 x10^6/uL (3.82-5.3); RED CELL DISTRIBUTION WIDTH 15.6 % (9.6-15.2)
[2018-03-08 20:59] LABS: ALANINE AMINOTRANSFERASE 20 U/L (12-78); ALBUMIN 3.3 g/dL (3.4-5.0); ANION GAP 9 mmol/L (5-15); CALCIUM 8.9 mg/dL (8.5-10.1); CHLORIDE 105 mmol/L (98-107); CREATININE 0.97 mg/dL (0.55-1.02)
[2018-03-08] MEDS ORDERED: SODIUM CHLORIDE 0.9% 1,000ML IVBOLUS ONE (21:00)
[2018-03-08] MEDS ORDERED: FAMOTIDINE 20 MG/2 ML IVP ONE (21:00)
[2018-03-08] MEDS ORDERED: SODIUM CHLORIDE FLUSH 10ML SYR IVF ONE (21:00)
[2018-03-08] MEDS ORDERED: MAALOX/HYOSCYAMINE/LIDOCAINE 45 ML BTL PO ONE (21:00)
[2018-03-08 21:04] LABS: ALKALINE PHOSPHATASE 115 U/L (45-117); BILIRUBIN,TOTAL 0.1 mg/dL (0.2-1.0); TOTAL PROTEIN 7.6 g/dL (6.4-8.2); TROPONIN I < 0.015 ng/mL (0.000-0.045)
[2018-03-08] MEDS ORDERED: MAALOX/HYOSCYAMINE/LIDOCAINE 45 ML BTL ONE (21:14)
[2018-03-08] MEDS ORDERED: FAMOTIDINE 20 MG/2 ML ONE (21:14)
[2018-03-08] MEDS ORDERED: CEFTRIAXONE PMX 1GM/50ML 50 ML ONE (21:46)
[2018-03-08] MEDS ORDERED: LORazepam 2 MG/ML, 1ML ONE (21:47)
[2018-03-08] MEDS ORDERED: AZITHROMYCIN 500 MG in SODIUM CHLORIDE 0.9% 250 ML IVPB ONE (22:00)
[2018-03-08] MEDS ORDERED: CEFTRIAXONE PMX 1GM/50ML 50 ML IVPB ONE (22:00)
[2018-03-08] MEDS ORDERED: LORazepam 2 MG/ML, 1ML IVPush ONE (22:00)
[2018-03-08 23:40] LABS: CULTURE INDICATED? YES; MICROSCOPIC INDICATED
[2018-03-08 23:42] VITALS: BP 120/75
[2018-03-08] MEDS ORDERED: CLON-365 PO (23:50)
[2018-03-09] MEDS ORDERED: CEFTRIAXONE PMX 1GM/50ML 50 ML IV ONE (02:00)
[2018-03-09] MEDS ORDERED: SODIUM CHLORIDE 0.9% 1,000 ML IV SCH (02:04)
[2018-03-09] MEDS ORDERED: BISACODYL 10 MG SUPP PR PRN (02:30)
[2018-03-09] MEDS ORDERED: hydrALAzine 20 MG/ML, 1ML IVPush PRN (02:30)
[2018-03-09] MEDS ORDERED: DOCUSATE 100 MG CAPSULE PO PRN (02:30)
[2018-03-09] MEDS ORDERED: POLYETHYLENE GLYCOL 17 GM PACKET PO PRN (02:30)
[2018-03-09] MEDS ORDERED: ONDANSETRON 2MG/ML, 2ML IVPush PRN (02:30)
[2018-03-09] MEDS ORDERED: ACETAMINOPHEN 325 MG TABLET PO PRN (02:30)
[2018-03-09] MEDS ORDERED: ENALAPRILAT 1.25 MG/ML, 2ML IVPush PRN (02:30)
[2018-03-09] MEDS ORDERED: LABETALOL 5MG/ML, 20ML IVPush PRN (02:30)
[2018-03-09] MEDS: GUAIFENESIN ER 600 MG TABLET PO SCH ×2 (02:40→12:56)
[2018-03-09] MEDS: ENOXAPARIN 40 MG/0.4 ML SQ SCH (02:40)
[2018-03-09] MEDS: NICOTINE 7 MG/24 HR PATCH.TD24 TD SCH (02:40)
[2018-03-09] MEDS: morphine SULFATE 10 MG/ML, 1ML IVPush PRN ×8 (02:41→23:01)
[2018-03-09 02:47] VITALS: BP 110/70
[2018-03-09 03:30] LABS: FREE T4 (FREE THYROXINE) 0.5 ng/dL (0.76-1.46); THYROID STIMULATING HORMONE 3.38 mIU/L (0.358-3.740)
[2018-03-09 04:38] LABS: HEMOGLOBIN A1C 6.1 % (4.2-6.3)
[2018-03-09 07:50] VITALS: BP 114/75
[2018-03-09] MEDS ORDERED: ONDANSETRON 4 MG TABLET ONE (09:35)
[2018-03-09] MEDS: DOXYCYCLINE 100MG TABLET PO SCH ×2 (09:45→19:55)
[2018-03-09] MEDS ORDERED: ONDANSETRON ODT 4 MG PO PRN (10:00)
[2018-03-09] MEDS: ESTRADIOL 1 MG TABLET PO SCH (10:03)
[2018-03-09] MEDS ORDERED: KETOROLAC 30 MG/1 ML IVPush PRN (13:00)
[2018-03-09] MEDS ORDERED: LIDODERM 5% PATCH TD SCH (13:00)
[2018-03-09 14:30] VITALS: BP 141/87
[2018-03-09] MEDS ORDERED: OMNIPAQUE 350 MG/ML, 100ML BOTTLE ONE (16:58)
[2018-03-09] MEDS ORDERED: MORPHINE SULFATE 4 MG/ML, 1ML ONE (16:59)
[2018-03-09 18:32] VITALS: BP 115/72
[2018-03-09] MEDS ORDERED: QUETIAPINE 200 MG TABLET PO SCH (21:00)
[2018-03-09] MEDS ORDERED: CEFTRIAXONE PMX 2GM/50ML 50 ML IV SCH (23:00)
[2018-03-09] MEDS ORDERED: CEFTRIAXONE 2 GM in DEXTROSE 5% 50 ML IV SCH (23:00)
[2018-03-10] MEDS: ENOXAPARIN 40 MG/0.4 ML SQ SCH (01:16)
[2018-03-10] MEDS: GUAIFENESIN ER 600 MG TABLET PO SCH (02:04)
[2018-03-10] MEDS: morphine SULFATE 10 MG/ML, 1ML IVPush PRN ×3 (02:05→08:53)
[2018-03-10 03:05] VITALS: BP 108/69
[2018-03-10 04:51] LABS: ALBUMIN 2.8 g/dL (3.4-5.0); ANION GAP 7 mmol/L (5-15); CALCIUM 8.3 mg/dL (8.5-10.1); CHLORIDE 107 mmol/L (98-107)
[2018-03-10 04:54] LABS: ALANINE AMINOTRANSFERASE 15 U/L (12-78); ALKALINE PHOSPHATASE 106 U/L (45-117); BILIRUBIN,TOTAL 0.2 mg/dL (0.2-1.0); CHOL/HDL RATIO 6.8; CHOLESTEROL, TOTAL 183 mg/dL (140-239); CREATININE 0.89 mg/dL (0.55-1.02); HDL CHOL % 15 % (28-40); HDL CHOLESTEROL (DIRECT) 27 mg/dL (40-60); TOTAL PROTEIN 6.4 g/dL (6.4-8.2); TRIGLYCERIDES 538 mg/dL (50-200)
[2018-03-10 05:14] LABS: MEAN CORPUSCULAR HEMOGLOBIN 29.8 pg (27.0-34.8); MEAN CORPUSCULAR HGB CONC 33.2 g/dL (32.4-35.8); MEAN CORPUSCULAR VOLUME 89.9 fL (80-100); MEAN PLATELET VOLUME 7.7 fL (7.4-10.4); PLATELET COUNT 291 x10^3/uL (130-400); RED BLOOD COUNT 3.45 x10^6/uL (3.82-5.3); RED CELL DISTRIBUTION WIDTH 15.6 % (9.6-15.2)
[2018-03-10] MEDS: NICOTINE 7 MG/24 HR PATCH.TD24 TD SCH (05:21)
[2018-03-10 05:53] LABS: BASOPHILS # (AUTO) 0.05 x10^3/uL (0-0.1); BASOPHILS % (AUTO) 1 % (0-1); EOSINOPHILS % (AUTO) 1 % (1-7); LYMPHOCYTES # (AUTO) 4.15 x10^3/uL (1-3.4); LYMPHOCYTES % (AUTO) 58 % (22-44); MD SCAN; MONOCYTES # (AUTO) 0.39 x10^3/uL (0.2-0.8); MONOCYTES % (AUTO) 5 % (2-9); NEUTROPHILS % (AUTO) 35 % (42-75)
[2018-03-10 07:38] VITALS: BP 101/62
[2018-03-10] MEDS: ESTRADIOL 1 MG TABLET PO SCH (08:52)
[2018-03-10] MEDS: DOXYCYCLINE 100MG TABLET PO SCH (08:52)
[2018-03-10] MEDS ORDERED: CEFD300C37 PO (09:08)
[2018-03-10] MEDS ORDERED: DOXY100T PO (09:08)
== END 2018-03-10 10:35 | disposition home or self-care (01) | DRG 194 ==
LOC: ED 22:23 → 3NW 23:53 → 3NE 03-09 15:34
PROVIDERS: ADMIT Internal Medicine; ATTEND Family Medicine
DX: J15.9 Unspecified bacterial pneumonia (principal); N39.0 Urinary tract infection, site not specified; E44.0 Moderate protein-calorie malnutrition; Z87.11 Personal history of peptic ulcer disease; F12.10 Cannabis abuse, uncomplicated; E78.5 Hyperlipidemia, unspecified; F17.210 Nicotine dependence, cigarettes, uncomplicated; F31.9 Bipolar disorder, unspecified; F41.0 Panic disorder [episodic paroxysmal anxiety]; F43.10 Post-traumatic stress disorder, unspecified; I10 Essential (primary) hypertension; Z90.710 Acquired absence of both cervix and uterus; G47.00 Insomnia, unspecified; Z68.29 Body mass index [BMI] 29.0-29.9, adult
CPT/HCPCS: 36415; 71046; 71260; 74021; 76700; 80053; 80061; 81001; 83036; 83690; 83735; 84439; 84443; 84484; 85025; 87040; 87086; 93005; 96365; 96375; J0456; J0696; J1650; Q0162; Q9967; J2060; J2270; J7030; J7050; S0028

== ENCOUNTER 2018-05-07 19:41 | Emergency (ER) | payer MEDICARE, MEDICAID ==
[~2018-05-07] VITALS: Ht 165.1 cm; Wt 68.0 kg
[~2018-05-07 19:41] MED LIST changes: +CEFD300C37 PO; +DOXY100T PO
[2018-05-07] MEDS ORDERED: DIPHENHYDRAMINE 50 MG/ML, 1ML ONE (20:20)
[2018-05-07] MEDS ORDERED: METOCLOPRAMIDE 5 MG/ML, 2ML ONE (20:20)
[2018-05-07] MEDS ORDERED: KETOROLAC 30 MG/1 ML ONE ×2 (20:25→20:27)
[2018-05-07] MEDS ORDERED: KETOROLAC 30 MG/1 ML IVPush ONE (20:30)
[2018-05-07] MEDS ORDERED: DIPHENHYDRAMINE 50 MG/ML, 1ML IVPush ONE (20:30)
[2018-05-07] MEDS ORDERED: SODIUM CHLORIDE FLUSH 10ML SYR IVF ONE (20:30)
[2018-05-07] MEDS ORDERED: METOCLOPRAMIDE 5 MG/ML, 2ML IVPush ONE (20:30)
[2018-05-07 20:34] LABS: BASOPHILS # (AUTO) 0.05 x10^3/uL (0-0.1); BASOPHILS % (AUTO) 1 % (0-1); EOSINOPHILS # (AUTO) 0.05 x10^3/uL (0-0.4); EOSINOPHILS % (AUTO) 1 % (1-7); LYMPHOCYTES # (AUTO) 3.14 x10^3/uL (1-3.4); LYMPHOCYTES % (AUTO) 45 % (22-44); MD NO; MEAN CORPUSCULAR HEMOGLOBIN 30.7 pg (27.0-34.8); MEAN CORPUSCULAR HGB CONC 33.4 g/dL (32.4-35.8); MEAN CORPUSCULAR VOLUME 91.6 fL (80-100); MEAN PLATELET VOLUME 8.1 fL (7.4-10.4); MONOCYTES # (AUTO) 0.28 x10^3/uL (0.2-0.8); MONOCYTES % (AUTO) 4 % (2-9); NEUTROPHILS # (AUTO) 3.44 x10^3/uL (1.8-6.8); NEUTROPHILS % (AUTO) 49 % (42-75); PLATELET COUNT 300 x10^3/uL (130-400); RED BLOOD COUNT 3.26 x10^6/uL (3.82-5.3); RED CELL DISTRIBUTION WIDTH 15.8 % (9.6-15.2)
[2018-05-07 20:42] LABS: ALANINE AMINOTRANSFERASE 19 U/L (12-78); ALBUMIN 2.9 g/dL (3.4-5.0); ANION GAP 3 mmol/L (5-15); CALCIUM 7.6 mg/dL (8.5-10.1); CHLORIDE 119 mmol/L (98-107); CREATININE 0.72 mg/dL (0.55-1.02)
[2018-05-07 20:47] LABS: ALKALINE PHOSPHATASE 81 U/L (45-117); BILIRUBIN,TOTAL 0.3 mg/dL (0.2-1.0); TOTAL PROTEIN 6.3 g/dL (6.4-8.2); TROPONIN I < 0.015 ng/mL (0.000-0.045)
[2018-05-07] MEDS ORDERED: POTASSIUM CHLORIDE 20 MEQ TAB.ER.PRT ONE (21:00)
[2018-05-07] MEDS ORDERED: POTASSIUM CHLORIDE 20 MEQ TAB.ER.PRT PO ONE (21:00)
[2018-05-07] MEDS ORDERED: OMNIPAQUE 350 MG/ML, 100ML BOTTLE ONE (22:30)
[2018-05-07 22:55] VITALS: BP 117/71
== END 2018-05-07 22:57 | disposition home or self-care (01) ==
LOC: ED 22:46
DX: R10.12 Left upper quadrant pain (principal); R51 Headache; I10 Essential (primary) hypertension; E78.5 Hyperlipidemia, unspecified
CPT/HCPCS: 36415; 70496; 71045; 80053; 83690; 84484; 85025; 93005; 96374; 96375; 99285; J1200; J1885; J2765; Q9967

== ENCOUNTER 2018-05-24 12:58 | Emergency (ER) | payer MEDICARE, MEDICAID ==
[~2018-05-24] VITALS: Ht 165.1 cm; Wt 68.9 kg
[2018-05-24 12:59] VITALS: BP 192/99
[2018-05-24] MEDS ORDERED: CEFAZOLIN 1,000 MG IM ONE (14:00)
[2018-05-24] MEDS ORDERED: CEFAZOLIN 1,000 MG ONE (14:05)
== END 2018-05-24 14:52 | disposition home or self-care (01) ==
LOC: ED 14:30
DX: L03.113 Cellulitis of right upper limb (principal)
CPT/HCPCS: 29125; 73130; 96372; 99284; J0690

== ENCOUNTER 2020-04-24 13:21 | Emergency (ER) | payer MEDICAID, MEDICARE ==
[~2020-04-24] VITALS: Ht 165.1 cm; Wt 74.0 kg
[~2020-04-24 13:21] MED LIST changes: +ALPR2TAB2 PO; -ASCO500T6 PO; +ASCO500T9 PO; -CLON-365 PO; -CLON0.1T PO; +CLON0.1T22 PO; +CLON1TAB11 PO
--- NOTE | 2020-04-24 13:37 | NUR ---
pt in bed in gown. nibp, and o2 monitoring in place. occult blood and lube at bedside for provider.
[2020-04-24 14:35] LABS: ALANINE AMINOTRANSFERASE 24 U/L (12-78); ANION GAP 6 mmol/L (5-15); CALCIUM 9.2 mg/dL (8.5-10.1); CHLORIDE 107 mmol/L (98-107); CREATININE 0.84 mg/dL (0.55-1.02); INTERNATIONAL NORMALIZED RATIO 0.94 (0.93-1.1)
[2020-04-24 14:36] LABS: BASOPHILS # (AUTO) 0.03 x10^3/uL (0-0.1); BASOPHILS % (AUTO) 0 % (0-1); EOSINOPHILS # (AUTO) 0.05 x10^3/uL (0-0.4); EOSINOPHILS % (AUTO) 0 % (1-7); LYMPHOCYTES # (AUTO) 2.65 x10^3/uL (1-3.4); LYMPHOCYTES % (AUTO) 24 % (22-44); MD NO; MEAN CORPUSCULAR HEMOGLOBIN 30.4 pg (27.0-34.8); MEAN CORPUSCULAR HGB CONC 33.1 g/dL (32.4-35.8); MEAN CORPUSCULAR VOLUME 91.9 fL (80-100); MEAN PLATELET VOLUME 7.8 fL (7.4-10.4); MONOCYTES # (AUTO) 0.49 x10^3/uL (0.2-0.8); MONOCYTES % (AUTO) 4 % (2-9); NEUTROPHILS # (AUTO) 7.81 x10^3/uL (1.8-6.8); NEUTROPHILS % (AUTO) 71 % (42-75); PLATELET COUNT 408 x10^3/uL (130-400); RED BLOOD COUNT 4.15 x10^6/uL (3.82-5.3)
[2020-04-24 14:38] LABS: ALKALINE PHOSPHATASE 104 U/L (45-117); BILIRUBIN,TOTAL 0.3 mg/dL (0.2-1.0); TOTAL PROTEIN 8.1 g/dL (6.4-8.2)
[2020-04-24] MEDS ORDERED: OMNIPAQUE 350 MG/ML, 100ML BOTTLE ONE (15:17)
[2020-04-24 15:48] VITALS: BP 138/93
[2020-04-24] MEDS ORDERED: HYDROcodone/APAP 5/325 TABLET PO ONE (16:00)
[2020-04-24] MEDS ORDERED: HYDROcodone/APAP 5/325 TABLET ONE (16:08)
== END 2020-04-24 16:30 | disposition home or self-care (01) ==
LOC: ED 15:37
DX: K92.1 Melena (principal); E11.9 Type 2 diabetes mellitus without complications; I10 Essential (primary) hypertension; E78.5 Hyperlipidemia, unspecified; Z90.89 Acquired absence of other organs; Z90.710 Acquired absence of both cervix and uterus; F17.200 Nicotine dependence, unspecified, uncomplicated
CPT/HCPCS: 36415; 74177; 80053; 85025; 85610; 85730; 86850; 86900; 99285; Q9967

== ENCOUNTER → 2020-06-27 | Outpatient (CLI) | payer MEDICARE ==
[2020-06-27 12:31] LABS: ALANINE AMINOTRANSFERASE 25 U/L (12-78); ALBUMIN 4.6 g/dL (3.4-5.0); ANION GAP 8 mmol/L (5-15); CALCIUM 9.8 mg/dL (8.5-10.1); CHLORIDE 107 mmol/L (98-107); CHOLESTEROL, TOTAL 315 mg/dL (140-239)
[2020-06-27 12:34] LABS: ALKALINE PHOSPHATASE 101 U/L (45-117); BILIRUBIN,TOTAL 0.4 mg/dL (0.2-1.0); CHOL/HDL RATIO 3.6; CREATININE 0.84 mg/dL (0.55-1.02); HDL CHOL % 28 % (28-40); HDL CHOLESTEROL (DIRECT) 88 mg/dL (40-60); LDL CHOLESTEROL,CALCULATED 195 mg/dL (54-169); LDL/HDL RATIO 2.2 (0.5-3.0); TOTAL PROTEIN 8.8 g/dL (6.4-8.2); TRIGLYCERIDES 162 mg/dL (50-200); VLDL CHOLESTEROL 32 mg/dL (0-25)
== END | disposition home or self-care (01) ==
LOC: CFH 08:32
PROVIDERS: ATTEND Family Medicine
DX: N63.20 Unspecified lump in the left breast, unspecified quadrant (principal); M25.551 Pain in right hip; I10 Essential (primary) hypertension; Z96.641 Presence of right artificial hip joint
CPT/HCPCS: 36415; 73502; 76642; 77066; 80053; 80061; G0279

== ENCOUNTER 2020-11-20 07:30 | Emergency (ER) | payer MEDICARE ==
[~2020-11-20] VITALS: Ht 162.6 cm; Wt 74.1 kg
[~2020-11-20 07:30] MED LIST changes: -PANT40TA5 PO; +PANT40TA6 PO
[2020-11-20 08:24] LABS: BASOPHILS % (AUTO) 1 % (0-1); EOSINOPHILS % (AUTO) 1 % (1-7); LYMPHOCYTES % (AUTO) 33 % (22-44); MEAN CORPUSCULAR HEMOGLOBIN 30.6 pg (27.0-34.8); MEAN CORPUSCULAR HGB CONC 33.7 g/dL (32.4-35.8); MEAN PLATELET VOLUME 8.3 fL (7.4-10.4); MONOCYTES % (AUTO) 4 % (2-9); NEUTROPHILS % (AUTO) 61 % (42-75); PLATELET COUNT 322 x10^3/uL (130-400); RED BLOOD COUNT 3.99 x10^6/uL (3.82-5.3)
[2020-11-20 08:28] LABS: MD NO
--- NOTE | 2020-11-20 08:35 | NUR ---
LABS DRAWN, PCXR AT BS. PT PLACED ON ALL ROOM MONITORING. CALL LIGHT WITHIN REACH. AWAITING RESULTS.
[2020-11-20 08:36] LABS: ALANINE AMINOTRANSFERASE 22 U/L (12-78); ALBUMIN 3.5 g/dL (3.4-5.0); ANION GAP 2 mmol/L (5-15); CALCIUM 8.8 mg/dL (8.5-10.1); CHLORIDE 106 mmol/L (98-107); CREATININE 0.79 mg/dL (0.55-1.02)
[2020-11-20 08:41] LABS: ALKALINE PHOSPHATASE 97 U/L (45-117); BILIRUBIN,TOTAL 0.4 mg/dL (0.2-1.0); TOTAL PROTEIN 7.3 g/dL (6.4-8.2); TROPONIN I < 0.015 ng/mL (0.000-0.045)
[2020-11-20 09:05] VITALS: BP 136/72
[2020-11-20] MEDS ORDERED: DEXAMETHASONE 4 MG TABLET ONE (09:17)
[2020-11-20] MEDS ORDERED: DEXAMETHASONE 4 MG TABLET PO ONE (10:00)
== END 2020-11-20 09:50 | disposition home or self-care (01) ==
LOC: ED 09:06
DX: B34.9 Viral infection, unspecified (principal); Z20.822 Contact with and (suspected) exposure to COVID-19; R06.02 Shortness of breath; R05 Cough; R07.89 Other chest pain; E11.9 Type 2 diabetes mellitus without complications; E78.5 Hyperlipidemia, unspecified; M79.10 Myalgia, unspecified site; F17.210 Nicotine dependence, cigarettes, uncomplicated; Z90.89 Acquired absence of other organs; Z90.710 Acquired absence of both cervix and uterus
CPT/HCPCS: 36415; 71045; 80053; 83880; 84484; 85025; 93005; 99285; 99406; U0003

== ENCOUNTER 2021-01-10 16:22 | Emergency (ER) | payer MEDICARE ==
[~2021-01-10] VITALS: Ht 162.6 cm; Wt 73.5 kg
[~2021-01-10 16:22] MED LIST changes: +ASPI-1026 PO; -ASPI-650 PO; -OXYC-302 PO; +OXYC1TAB14 PO
--- NOTE | 2021-01-10 17:18 | NUR ---
clerical production worker note: Pt ambulatory to room from lobby with steady gait.
[2021-01-10] MEDS ORDERED: LIDOCAINE-MPF 1%, 5ML INFIL ONE (17:30)
[2021-01-10] MEDS ORDERED: LIDOCAINE-MPF 1%, 5ML ONE (17:46)
[2021-01-10] MEDS ORDERED: L.E.T SOLUTION TP ONE ×3 (18:04→18:30)
[2021-01-10] MEDS ORDERED: HYDROcodone/APAP 5/325 TABLET ONE (18:14)
[2021-01-10] MEDS ORDERED: HYDROcodone/APAP 5/325 TABLET PO ONE (19:00)
[2021-01-10] MEDS ORDERED: IBUPROFEN 800 MG TABLET ONE (19:46)
[2021-01-10] MEDS ORDERED: NEOSPORIN OINT. PKT 1 PACKET ONE (19:46)
[2021-01-10 19:49] VITALS: BP 153/93
[2021-01-10] MEDS ORDERED: IBUPROFEN 800 MG TABLET PO ONE (20:00)
--- NOTE | 2021-01-10 20:10 | NUR ---
ABSCESS TO R LABIA WAS DRAINED BY ER PA AND PACKING WAS INSERTED. WOUND COVERED WITH ABX OINTMENT, ADAPTIC, STERILE GAUZE, CONTAINED WITH HUMZA PAD AND GAUZE UNDERWEAR. D/C INSTRUCTIONS, MEDS & F/U APPT RV'WD WITH PT, SHE VERBALIZES UNDERSTANDING. RX GIVEN X2. INSTRUCTED PT TO RETURN TO ED IN 2 DAYS FOR WOUND RECHECK & PACKING REMOVAL. PT AMBULATED OUT OF ED WITHOUT DIFFICULTY. CAB VOUCHER PROVIDED.
== END 2021-01-10 20:19 | disposition home or self-care (01) ==
LOC: ED 17:58
DX: N76.4 Abscess of vulva (principal); F17.210 Nicotine dependence, cigarettes, uncomplicated; E11.9 Type 2 diabetes mellitus without complications; Z90.89 Acquired absence of other organs; Z90.710 Acquired absence of both cervix and uterus; Z87.11 Personal history of peptic ulcer disease
CPT/HCPCS: 56405; 99284